=== PATIENT | male | born 1970 | race Caucasian/White ===

== ENCOUNTER 2017-02-28 09:00 | Outpatient (RCR) | payer BC | END 2017-03-09 | LOC: PT 09:00 | PROVIDERS: ATTEND Specialist | DX: S29.011D Strain of muscle and tendon of front wall of thorax, subsequent encounter (principal); M62.81 Muscle weakness (generalized) ==

== ENCOUNTER 2017-09-11 16:06 | Emergency (ER) | payer BC ==
[~2017-09-11] VITALS: Ht 182.9 cm; Wt 83.9 kg
[2017-09-11] MEDS ORDERED: KETOROLAC TROMETHAMINE 30 MG/ML VIAL IV STA (16:36)
[2017-09-11] MEDS ORDERED: SODIUM CHLORIDE 0.9% 1000ML 1,000 ML IV STA (16:36)
[2017-09-11 18:44] VITALS: BP 136/86
== END 2017-09-11 18:46 | disposition home or self-care (01) ==
LOC: FSED 16:06
DX: R10.12 Left upper quadrant pain (principal); N20.0 Calculus of kidney
CPT/HCPCS: 74176; 80053; 80076; 81003; 85025; 99284; J1885; J7030